=== PATIENT | male | born 1985 | race Caucasian/White ===

== ENCOUNTER 2022-10-02 20:22 | Emergency (ER) | payer OTHER ==
[~2022-10-02] VITALS: Ht 170.2 cm; Wt 82.6 kg
[2022-10-02 20:28] VITALS: BP 151/94
--- NOTE | 2022-10-02 20:39 | NUR ---
Dr. Price examining patient.
[2022-10-02] MEDS ORDERED: IBUPROFEN 600 MG TAB PO ONE (20:45)
[2022-10-02] MEDS ORDERED: FAMOTIDINE 20 MG TAB PO ONE (20:45)
[2022-10-02] MEDS ORDERED: ACETAMINOPHEN EXTRA STRENGTH 500 MG TAB PO ONE (20:45)
[2022-10-02] MEDS ORDERED: ALUMINUM HYD/MAG/SIMETHICONE 30 ML UDC PO ONE (20:45)
--- NOTE | 2022-10-02 20:51 | NUR ---
PT TAKEN TO RADIOLOGY
--- NOTE | 2022-10-02 20:54 | NUR ---
PT RETURN FROM RADIOLOGY
[2022-10-02 21:34] LABS: BASOPHILS % (AUTO) 0.3 % (0.0-2.0); EOSINOPHILS # (AUTO) 0.2 K/uL (0-0.4); EOSINOPHILS % (AUTO) 2.1 % (0.0-4.0); HEMATOCRIT 43.8 % (36-52); HEMOGLOBIN 14.8 g/dL (12.0-18.0); LYMPHOCYTES # (AUTO) 2.1 K/uL (2.0-11.5); LYMPHOCYTES % (AUTO) 19.1 % (20.5-51.1); MEAN CORPUSCULAR HEMOGLOBIN 30 pg (27-31); MEAN CORPUSCULAR HGB CONC 34 g/dL (33-37); MEAN CORPUSCULAR VOLUME 88.3 fL (80-94); MONOCYTES # (AUTO) 0.7 K/uL (0.8-1.0); MONOCYTES % (AUTO) 6.7 % (1.7-9.3); NEUTROPHILS # (AUTO) 7.8 K/uL (1.8-7.7); NEUTROPHILS % (AUTO) 71.8 % (42.2-75.2); PLATELET COUNT (AUTO) 278 K/uL (140-450); RED BLOOD CELL COUNT(AUTO) 4.96 MIL/uL (4.20-6.10); RED CELL DISTRIBUTION WIDTH 12.3 % (11.6-13.7); WHITE BLOOD COUNT (AUTO) 10.9 K/uL (4.8-10.8)
[2022-10-02 21:56] LABS: ALBUMIN 4.2 g/dL (3.4-5.0); ANION GAP 10.2 (8-16); ASPARTATE AMINOTRANSFERASE 26 U/L (15-37); CARBON DIOXIDE 28.9 mmol/L (21-32); CHLORIDE 105 mmol/L (98-107); GFR ARICAN-AMERICAN 110 mL/min (>90); GLUCOSE 126 mg/dL (74-106); POTASSIUM 4.1 mmol/L (3.5-5.1); SODIUM SERUM 140 mmol/L (136-145); TOTAL BILIRUBIN 0.3 mg/dL (0.0-1.0); UREA NITROGEN, BLOOD 17 mg/dL (7-18)
[2022-10-02] MEDS ORDERED: IBUP-2213 PO (22:04)
[2022-10-02] MEDS ORDERED: FAMO-90 PO (22:04)
[2022-10-02 22:15] VITALS: BP 145/88
--- NOTE | 2022-10-02 22:15 | NUR ---
Patient discharged with v/s stable. Written and verbal after care instructions given and explained. Patient alert, oriented and verbalized understanding of instructions. Ambulatory with steady gait. All questions addressed prior to discharge. ID band removed. Patient advised to follow up with PMD. Rx of Ibuprofen and Pepcid given. Patient educated on indication of medication including possible reaction and side effects. Opportunity to ask questions provided and answered.
== END 2022-10-02 22:15 | disposition home or self-care (01) ==
LOC: MED 20:22
DX: R07.9 Chest pain, unspecified (principal); Z79.899 Other long term (current) drug therapy
CPT/HCPCS: 36415; 71045; 80053; 84484; 85025; 93005; 99285